=== PATIENT | female | born 1980 | race Two or more races ===

== ENCOUNTER 2022-03-26 11:35 | Emergency (ER) | payer MEDICAID, OTHER ==
[~2022-03-26] VITALS: Ht 165.1 cm; Wt 108.9 kg
[2022-03-26] MEDS ORDERED: diphenhdrAMINE HCL 25 MG CAP PO ONE (13:30)
[2022-03-26] MEDS ORDERED: ACETAMINOPHEN 325 MG TAB PO ONE (13:30)
[2022-03-26] MEDS ORDERED: DexAMETHasone SOD PHOS 4 MG/1ML SDV INJ IM ONE (13:30)
[2022-03-26 17:03] VITALS: BP 165/109
== END 2022-03-26 17:08 | disposition home or self-care (01) ==
LOC: ER 11:35
DX: G44.209 Tension-type headache, unspecified, not intractable (principal); I10 Essential (primary) hypertension
CPT/HCPCS: 70450; 96372; 99284; J1100